=== PATIENT | male | born 1975 | race Caucasian/White ===

== ENCOUNTER 2016-12-22 17:41 | Inpatient (IN) | payer OTHER ==
[~2016-12-22] VITALS: Ht 182.9 cm; Wt 96.2 kg
[2016-12-22 18:24] VITALS: BP 148/91
[2016-12-22 19:23] LABS: EOSINOPHILS % (AUTO) 4.1 % (0.0-3.0); LYMPHOCYTES % (AUTO) 22.5 % (20.0-45.0); MEAN CORPUSCULAR HEMOGLOBIN 31.9 PG (27.0-31.0); MEAN CORPUSCULAR HGB CONC 36.2 G/DL (32.0-36.0); MEAN CORPUSCULAR VOLUME 88 FL (80-99); MEAN PLATELET VOLUME 7.4 FL (6.5-10.1); NEUTROPHILS % (AUTO) 65.5 % (45.0-75.0); PLATELET COUNT 212 K/UL (150-450); RED BLOOD COUNT 4.85 M/UL (4.70-6.10); RED CELL DISTRIBUTION WIDTH 11.2 % (11.6-14.8); WHITE BLOOD COUNT 10.8 K/UL (4.8-10.8)
[2016-12-22 19:36] LABS: ACETAMINOPHEN < 10 ug/mL (10-30); ALANINE AMINOTRANSFERASE 42 U/L (3-41); ALBUMIN/GLOBULIN RATIO 1.7 (1.0-2.7); ALCOHOL < 10 mg/dL; ANION GAP 13 (5-15); ASPARTATE AMINO TRANSFERASE 35 U/L (5-40); CALCIUM 9.4 mg/dL (8.6-10.2); CARBON DIOXIDE 28 mEQ/L (20-30); CHLORIDE 97 mEQ/L (98-107); CREATININE 0.9 mg/dL (0.7-1.2); GLOMERULAR FILTRATION RATE > 60 mL/min (>60); HEMOLYSIS 74; POTASSIUM 3.7 mEQ/L (3.4-4.9); SODIUM 138 mEQ/L (135-145); TOTAL PROTEIN 6.6 g/dL (6.6-8.7); TROPONIN I < 0.30 ng/mL (<=0.30)
[2016-12-22] MEDS ORDERED: ZANTAC150 MG ORAL (19:39)
[2016-12-22] MEDS ORDERED: DEXILANT30 MG ORAL (19:39)
[2016-12-22] MEDS ORDERED: ATORVASTATIN CA20 MG ORAL (19:40)
[2016-12-22] MEDS ORDERED: levETIRAcetam 500 MG in D5W 110 ML IVPB ONE (19:45)
[2016-12-22 19:46] LABS: CKMB 2.4 ng/mL (< 6.7)
[2016-12-22] MEDS ORDERED: levETIRAcetam 500mg vial IV ONE (19:48)
[2016-12-22] MEDS ORDERED: NS 110 ML ONE (19:48)
[2016-12-22] MEDS ORDERED: Morphine Sulfate 2mg/ml Inj IVP PRN (20:15)
[2016-12-22] MEDS ORDERED: LORazepam Inj 2mg/ml 1ml IV PRN (20:15)
[2016-12-22] MEDS ORDERED: Mylanta II UD 30ml ORAL PRN (20:15)
[2016-12-22] MEDS ORDERED: Zolpidem 5mg tab ORAL PRN (20:15)
[2016-12-22] MEDS ORDERED: Miralax 17gm pkt ORAL PRN (20:15)
[2016-12-22] MEDS ORDERED: CLARITIN5 MG ORAL (20:29)
[2016-12-22 20:42] VITALS: BP 138/84
--- NOTE | 2016-12-22 21:13 | Emergency Room Report ---
History of Present Illness General Chief Complaint: Seizure Source: Patient, EMS Present Illness HPI 41-year-old male presents to ED for evaluation. Per EMS patient had a witnessed seizure while at work. 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 She went to check on the patient he was on the floor convulsing. Call 911. After for several seconds then subsided. Upon arrival patient states he feels okay. Does not remember what happened. Denies history of seizures. Denies alcohol or drug use. Patient states approximately one month ago he had an episode where he passed out while in his car which was parked. Patient states he was "out" for approximately 90 minutes. This was unwitnessed. Patient went to see his doctor who did an EKG and said everything was okay. Denies any headache, blurry vision, nausea or vomiting. Denies chest pain or shortness of breath. No other aggravating relieving factors. Denies any other associated symptom Allergies: Coded Allergies: No Known Allergies (Unverified , 12/22/16) Patient History Past Medical History: GERD Past Surgical History: none Pertinent Family History: none Social History: Denies: alcohol use, drug use, smoking Immunizations: UTD Reviewed Nursing Documentation: PMH: Agreed, PSxH: Agreed Nursing Documentation-PMH Past Medical History: No History, Except For Hx Gastrointestinal Problems: Yes - reflux Review of Systems All Other Systems: negative except mentioned in HPI Physical Exam Vital Signs Date Time Temp Pulse Resp B/P Pulse Ox O2 Delivery O2 Flow Rate FiO2 12/22/16 17:37 97.2 86 18 129/87 97 Room Air Sp02 EP Interpretation: reviewed, normal General Appearance: no apparent distress, alert, GCS 15, non-toxic Head: normocephalic, atraumatic Eyes: bilateral eye PERRL, bilateral eye normal inspection ENT: hearing grossly normal, normal pharynx, no angioedema, normal voice Neck: full range of motion, supple/symm/no masses Respiratory: chest non-tender, lungs clear, normal breath sounds, speaking full sentences Cardiovascular #1: regular rate, rhythm, no edema Cardiovascular #2: 2+ carotid (R), 2+ carotid (L), 2+ radial (R), 2+ radial (L) , 2+ dorsalis pedis (R), 2+ dorsalis pedis (L) Gastrointestinal: normal bowel sounds, non tender, soft, non-distended, no guarding, no rebound Rectal: deferred Genitourinary: normal inspection, no CVA tenderness Musculoskeletal: back normal, gait/station normal, normal range of motion, non- tender Neurologic: alert, oriented x3, responsive, 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 denies history of seizures. Differential diagnosis includes- CVA/TIA, brain bleed, arrythmia, dehydration Clinical course Patient placed on stretcher. Initial history and physical I ordered labs, IV fluids, CT brain Labs-electrolytes okay, leukocytosis noted, hemoglobin/hematocrit stable. Utox negative EKG - NSR, no acute changes CXR unremarkable CT Brain shows area of hypodensity in the right temporal region. Differential includes subacute stroke versus mass. Discussed with radiology recommends MRI Given loading dose of Keppra. I discussed findings with patient and family. Recommended admission for further workup Case discussed with Dr. Echeverria and he agreed to accept the patient to his service for further care and support. i. I feel this is a highly complex case requiring extensive working including EKG/Rhythm strip, Xray/CT/US, Blood/urine lab work, repeat exams while in ED, and administration of strong opiates/narcotics for pain control, admission to hospital or close patient follow up. Diagnosis - new onset seizure, abnormal brain CT admitted to telemetry in serious condition Labs Test 12/22/16 18:55 12/22/16 20:00 White Blood Count 10.8 K/UL (4.8-10.8) Red Blood Count 4.85 M/UL (4.70-6.10) Hemoglobin 15.4 G/DL (14.2-18.0) Hematocrit 42.7 % (42.0-52.0) Mean Corpuscular Volume 88 FL (80-99) Mean Corpuscular Hemoglobin 31.9 PG (27.0-31.0) Mean Corpuscular Hemoglobin Concent 36.2 G/DL (32.0-36.0) Red Cell Distribution Width 11.2 % (11.6-14.8) Platelet Count 212 K/UL (150-450) Mean Platelet Volume 7.4 FL (6.5-10.1) Neutrophils (%) (Auto) 65.5 % (45.0-75.0) Lymphocytes (%) (Auto) 22.5 % (20.0-45.0) Monocytes (%) (Auto) 7.0 % (1.0-10.0) Eosinophils (%) (Auto) 4.1 % (0.0-3.0) Basophils (%) (Auto) 1.0 % (0.0-2.0) Sodium Level 138 mEQ/L (135-145) Potassium Level 3.7 mEQ/L (3.4-4.9) Chloride Level 97 mEQ/L (98-107) Carbon Dioxide Level 28 mEQ/L (20-30) Anion Gap 13 (5-15) Blood Urea Nitrogen 12 mg/dL (7-23) Creatinine 0.9 mg/dL (0.7-1.2) Estimat Glomerular Filtration Rate > 60 mL/min (>60) Glucose Level 101 mg/dL (74-106) Calcium Level 9.4 mg/dL (8.6-10.2) Total Bilirubin 0.3 mg/dL (0.0-1.2) Aspartate Amino Transf (AST/SGOT) 35 U/L (5-40) Alanine Aminotransferase (ALT/SGPT) 42 U/L (3-41) Alkaline Phosphatase 53 U/L (40-129) Total Creatine Kinase 156 U/L (38-174) Creatine Kinase MB 2.4 ng/mL (< 6.7) Creatine Kinase MB Relative Index 1.5 Troponin I < 0.30 ng/mL (<=0.30) Total Protein 6.6 g/dL (6.6-8.7) Albumin 4.2 g/dL (3.5-5.2) Globulin 2.4 g/dL Albumin/Globulin Ratio 1.7 (1.0-2.7) Salicylates Level < 1 mg/dL (10-30) Acetaminophen Level < 10 ug/mL (10-30) Serum Alcohol < 10 mg/dL Urine Opiates Screen Negative (NEGATIVE) Urine Barbiturates Screen Negative (NEGATIVE) Phencyclidine (PCP) Screen Negative (NEGATIVE) Urine Amphetamines Screen Negative (NEGATIVE) Urine Benzodiazepines Screen Negative (NEGATIVE) Urine Cocaine Screen Negative (NEGATIVE) Urine Marijuana (THC) Screen Negative (NEGATIVE) EKG Diagnostic Results Rate: normal Rhythm: NSR ST Segments: no acute changes ASA given to the pt in ED: No Rhythm Strip Diag. Results EP Interpretation: yes Rhythm: NSR, no PVC's, no ectopy Chest X-Ray Diagnostic Results EP Interpretation: Yes Findings: no consolidation, no effusion, no pneumothorax, no acute cardiopulmonary disease Number of Views: 1 CT/MRI/US Diagnostic Results CT/MRI/US Diagnostic Results : Imaging Test Ordered: CT Head Impression abnormal 3.5x2.5cm low density focus in R temporal lobe. subacute CVA vs. mass. recommend MRI Last Vital Signs Date Time Temp Pulse Resp B/P Pulse Ox O2 Delivery O2 Flow Rate FiO2 12/22/16 20:42 97.9 72 21 138/84 100 Room Air Status: improved Disposition: ADMITTED INPATIENT Condition: Serious Referrals: NON PHYSICIAN (PCP) DALILA FELIPE M.D. December 22, 2016 21:13
[2016-12-22 21:57] VITALS: BP 124/79
[2016-12-22] MEDS: Heparin 5000 units/ml inj SUBQ SCH (22:07)
[2016-12-23] VITALS: BP 132/90
[2016-12-23 06:37] VITALS: BP 112/73
[2016-12-23 07:36] LABS: BASOPHILS % (AUTO) 0.8 % (0.0-2.0); EOSINOPHILS % (AUTO) 3.9 % (0.0-3.0); LYMPHOCYTES % (AUTO) 28.1 % (20.0-45.0); MEAN CORPUSCULAR HGB CONC 34.2 G/DL (32.0-36.0); MEAN CORPUSCULAR VOLUME 88 FL (80-99); MEAN PLATELET VOLUME 7.3 FL (6.5-10.1); MONOCYTES % (AUTO) 10.3 % (1.0-10.0); PLATELET COUNT 216 K/UL (150-450); RED BLOOD COUNT 4.64 M/UL (4.70-6.10); RED CELL DISTRIBUTION WIDTH 11.6 % (11.6-14.8); WHITE BLOOD COUNT 8.5 K/UL (4.8-10.8)
[2016-12-23 07:48] LABS: ALANINE AMINOTRANSFERASE 37 U/L (3-41); ALBUMIN/GLOBULIN RATIO 1.7 (1.0-2.7); ANION GAP 11 (5-15); ASPARTATE AMINO TRANSFERASE 30 U/L (5-40); CALCIUM 9.1 mg/dL (8.6-10.2); CARBON DIOXIDE 28 mEQ/L (20-30); CHLORIDE 102 mEQ/L (98-107); CREATININE 0.8 mg/dL (0.7-1.2); GLOMERULAR FILTRATION RATE > 60 mL/min (>60); HEMOLYSIS 11; POTASSIUM 3.8 mEQ/L (3.4-4.9); SODIUM 141 mEQ/L (135-145)
[2016-12-23 08:00] VITALS: BP 116/86
[2016-12-23] MEDS: Heparin 5000 units/ml inj SUBQ SCH ×2 (08:10→20:15)
--- NOTE | 2016-12-23 09:11 | Diagnostic Imaging Report ---
Indication: Seizure Technique: Contiguous 5 mm thick transaxial imaging of the head obtained in a Siemens Sensation [address] scanner. Soft tissue and bone windows generated. Total Dose length Product (DLP): [address] Dose Index Volume (CTDIvol): 70.38 mGy Comparison: none Findings: There is a 3-4 cm area of low attenuation within the right temporal lobe mostly within the middle cranial fossa. Nature of the low density is not known but is suspicious for edema, which may be related to recent or subacute infarct, tumor, cerebritis or infection. Further evaluation with gadolinium-enhanced MRI is recommended. There is no acute hemorrhage. There is no mass effect on the temporal horn of the right lateral ventricle. The lateral ventricles appear symmetric. There is no midline shift. Basal cisterns are normal. Osseous structures are unremarkable in appearance. Mastoids are clear bilaterally. Impression: Suspected edema within the right temporal lobe. Considerations are numerous including recent CVA, cerebritis or tumor. Evaluation with gadolinium-enhanced MRI is recommended. Critical value communication. Findings were discussed via telephone with Dr. Escalona at 19:20, 12/22/[address] scanner at [facility] is accredited by the [employer] and the scans are performed using protocols designed to limit radiation exposure to as low as reasonably achievable to attain images of sufficient resolution adequate for diagnostic evaluation.
--- NOTE | 2016-12-23 09:50 | Diagnostic Imaging Report ---
Indication: Chest Pain Comparison: None A single view chest radiograph was obtained. Findings: Cardiomediastinal appearance is within normal limits for age. Pulmonary vascularity is appropriate. The diaphragmatic contour is smooth and costophrenic angles are sharp. No pleural effusions are identified. The bones are unremarkable. Impression: No acute findings
[2016-12-23 12:00] VITALS: BP 119/78
--- NOTE | 2016-12-23 12:38 | History and Physical ---
History of Present Illness General Date patient seen: December 23, 2016 Reason for Hospitalization: Seizure Present Illness HPI 41-year-old male without any significant PMH presents to ED for evaluation of a witnessed seizure while at work. 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 She went to check on the patient he was on the floor convulsing. Call 911. After for several seconds then subsided. Upon arrival patient states he feels okay. Does not remember what happened. He states approximately one month ago he had an episode where he passed out while in his car which was parked. Patient states he was "out" for approximately 90 minutes. He is admitted for further work up. Allergies: Coded Allergies: No Known Allergies (Unverified , 12/22/16) Medication History Scheduled Atorvastatin Calcium* (Atorvastatin Calcium*), Unknown Dose ORAL BEDTIME, ( Reported) Dexlansoprazole (Dexilant), Unknown Dose ORAL DAILY, (Reported) Loratadine (Claritin), 5 MG ORAL NEEDED, (Reported) Ranitidine Hcl* (Zantac*), Unknown Dose ORAL DAILY, (Reported) Patient History Healthcare decision maker pt A&Ox4 Resuscitation status Full Code Advanced Directive on File No Past Medical/Surgical History Past Medical/Surgical History: (1) Hypercholesteremia Review of Systems All Other Systems: negative except mentioned in HPI Physical Exam General Appearance: WD/WN Lines, tubes and drains: peripheral HEENT: normocephalic, atraumatic Neck: non-tender, normal alignment Respiratory/Chest: chest wall non-tender, lungs clear Cardiovascular/Chest: normal peripheral pulses, normal rate Abdomen: normal bowel sounds, non tender Extremities: normal range of motion, non-tender Skin Exam: normal pigmentation 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 normal Last 24 Hour Vital Signs Date Time Temp Pulse Resp B/P Pulse Ox O2 Delivery O2 Flow Rate FiO2 12/23/16 08:00 97.7 67 18 116/86 100 Room Air 12/23/16 08:00 69 12/23/16 06:37 97.5 62 16 112/73 99 12/23/16 04:00 57 12/23/16 00:00 97.8 64 16 132/90 98 Room Air 12/23/16 00:00 64 12/22/16 22:26 97.9 72 16 124/79 99 Room Air 12/22/16 21:57 72 16 124/79 99 Room Air 12/22/16 20:42 97.9 72 21 138/84 100 Room Air 12/22/16 18:24 76 15 148/91 100 Room Air 12/22/16 17:51 86 18 Room Air 12/22/16 17:37 97.2 86 18 129/87 97 Room Air Intake and Output 12/22/16 12/23/16 19:00 07:00 Intake Total 1115 ml Output Total 200 ml Balance 915 ml Intake IV Total 1115 ml Output Urine Total 200 ml # Voids 1 Laboratory Tests Test 12/22/16 18:55 12/22/16 20:00 12/23/16 07:20 White Blood Count 10.8 K/UL (4.8-10.8) 8.5 K/UL (4.8-10.8) Red Blood Count 4.85 M/UL (4.70-6.10) 4.64 M/UL (4.70-6.10) L Hemoglobin 15.4 G/DL (14.2-18.0) 13.9 G/DL (14.2-18.0) L Hematocrit 42.7 % (42.0-52.0) 40.7 % (42.0-52.0) L Mean Corpuscular Volume 88 FL (80-99) 88 FL (80-99) Mean Corpuscular Hemoglobin 31.9 PG (27.0-31.0) H 30.0 PG (27.0-31.0) Mean Corpuscular Hemoglobin Concent 36.2 G/DL (32.0-36.0) H 34.2 G/DL (32.0-36.0) Red Cell Distribution Width 11.2 % (11.6-14.8) L 11.6 % (11.6-14.8) Platelet Count 212 K/UL (150-450) 216 K/UL (150-450) Mean Platelet Volume 7.4 FL (6.5-10.1) 7.3 FL (6.5-10.1) Neutrophils (%) (Auto) 65.5 % (45.0-75.0) 57.0 % (45.0-75.0) Lymphocytes (%) (Auto) 22.5 % (20.0-45.0) 28.1 % (20.0-45.0) Monocytes (%) (Auto) 7.0 % (1.0-10.0) 10.3 % (1.0-10.0) H Eosinophils (%) (Auto) 4.1 % (0.0-3.0) H 3.9 % (0.0-3.0) H Basophils (%) (Auto) 1.0 % (0.0-2.0) 0.8 % (0.0-2.0) Sodium Level 138 mEQ/L (135-145) 141 mEQ/L (135-145) Potassium Level 3.7 mEQ/L (3.4-4.9) 3.8 mEQ/L (3.4-4.9) Chloride Level 97 mEQ/L (98-107) L 102 mEQ/L (98-107) Carbon Dioxide Level 28 mEQ/L (20-30) 28 mEQ/L (20-30) Anion Gap 13 (5-15) 11 (5-15) Blood Urea Nitrogen 12 mg/dL (7-23) 8 mg/dL (7-23) Creatinine 0.9 mg/dL (0.7-1.2) 0.8 mg/dL (0.7-1.2) Estimat Glomerular Filtration Rate > 60 mL/min (>60) > 60 mL/min (>60) Glucose Level 101 mg/dL (74-106) 97 mg/dL (74-106) Calcium Level 9.4 mg/dL (8.6-10.2) 9.1 mg/dL (8.6-10.2) Total Bilirubin 0.3 mg/dL (0.0-1.2) 0.7 mg/dL (0.0-1.2) Aspartate Amino Transf (AST/SGOT) 35 U/L (5-40) 30 U/L (5-40) Alanine Aminotransferase (ALT/SGPT) 42 U/L (3-41) H 37 U/L (3-41) Alkaline Phosphatase 53 U/L (40-129) 45 U/L (40-129) Total Creatine Kinase 156 U/L (38-174) Creatine Kinase MB 2.4 ng/mL (< 6.7) Creatine Kinase MB Relative Index 1.5 Troponin I < 0.30 ng/mL (<=0.30) Total Protein 6.6 g/dL (6.6-8.7) 6.0 g/dL (6.6-8.7) L Albumin 4.2 g/dL (3.5-5.2) 3.8 g/dL (3.5-5.2) Globulin 2.4 g/dL 2.2 g/dL Albumin/Globulin Ratio 1.7 (1.0-2.7) 1.7 (1.0-2.7) Salicylates Level < 1 mg/dL (10-30) L Acetaminophen Level < 10 ug/mL (10-30) L Serum Alcohol < 10 mg/dL Urine Opiates Screen Negative (NEGATIVE) Urine Barbiturates Screen Negative (NEGATIVE) Phencyclidine (PCP) Screen Negative (NEGATIVE) Urine Amphetamines Screen Negative (NEGATIVE) Urine Benzodiazepines Screen Negative (NEGATIVE) Urine Cocaine Screen Negative (NEGATIVE) Urine Marijuana (THC) Screen Negative (NEGATIVE) Height (Feet): 6 Height (Inches): 0.00 Weight (Pounds): 212 Medications Current Medications Medications (Trade) Dose Ordered Sig/Sisi Route PRN Reason Start Time Stop Time Status Last Admin Dose Admin Acetaminophen (Tylenol) 650 mg Q4H PRN ORAL fever 12/22/16 20:15 01/21/17 20:14 Al Hydroxide/Mg Hydroxide (Mylanta II) 30 ml Q6H PRN ORAL dyspepsia 12/22/16 20:15 01/21/17 20:14 Dextrose (Dextrose 50%) STAT PRN IV Hypoglycemia 12/22/16 20:15 01/21/17 20:14 Heparin Sodium (Porcine) (Heparin 5000 units/ml) 5,000 units EVERY 12 HOURS SUBQ 12/22/16 21:00 01/21/17 20:59 12/23/16 08:10 Lorazepam (Ativan 2mg/ml 1ml) 2 mg Q1H PRN IV seizures 12/22/16 20:15 12/29/16 20:14 Morphine Sulfate (Morphine Sulfate) 1 mg Q4H PRN IVP For Pain 12/22/16 20:15 12/29/16 20:14 Ondansetron HCl (Zofran) 4 mg Q6H PRN IVP Nausea & Vomiting 12/22/16 20:15 01/21/17 20:14 Polyethylene Glycol (Miralax) 17 gm HSPRN PRN ORAL Constipation 12/22/16 20:15 01/21/17 20:14 Zolpidem Tartrate (Ambien) 5 mg HSPRN PRN ORAL Insomnia 12/22/16 20:15 01/21/17 20:14 Assessment/Plan Problem List: (1) New onset seizure ICD Codes: R56.9 - Unspecified convulsions SNOMED: 15644249 (2) Brain mass ICD Codes: G93.9 - Disorder of brain, unspecified SNOMED: 833181480 (3) Hypercholesteremia ICD Codes: E78.00 - Pure hypercholesterolemia, unspecified SNOMED: 13408807 Assessment/Plan Neuro evaluation anti seizures prn dvt prophylaxis. JALIL LUTHER December 23, 2016 12:38
--- NOTE | 2016-12-23 13:24 | Neurology Progress Note ---
Objective Physical Exam Last Vital Signs Date Time Temp Pulse Resp B/P Pulse Ox O2 Delivery O2 Flow Rate FiO2 12/23/16 12:00 96.8 59 18 119/78 98 Room Air Laboratory Tests Test 12/22/16 18:55 12/22/16 20:00 12/23/16 07:20 White Blood Count 10.8 K/UL (4.8-10.8) 8.5 K/UL (4.8-10.8) Red Blood Count 4.85 M/UL (4.70-6.10) 4.64 M/UL (4.70-6.10) L Hemoglobin 15.4 G/DL (14.2-18.0) 13.9 G/DL (14.2-18.0) L Hematocrit 42.7 % (42.0-52.0) 40.7 % (42.0-52.0) L Mean Corpuscular Volume 88 FL (80-99) 88 FL (80-99) Mean Corpuscular Hemoglobin 31.9 PG (27.0-31.0) H 30.0 PG (27.0-31.0) Mean Corpuscular Hemoglobin Concent 36.2 G/DL (32.0-36.0) H 34.2 G/DL (32.0-36.0) Red Cell Distribution Width 11.2 % (11.6-14.8) L 11.6 % (11.6-14.8) Platelet Count 212 K/UL (150-450) 216 K/UL (150-450) Mean Platelet Volume 7.4 FL (6.5-10.1) 7.3 FL (6.5-10.1) Neutrophils (%) (Auto) 65.5 % (45.0-75.0) 57.0 % (45.0-75.0) Lymphocytes (%) (Auto) 22.5 % (20.0-45.0) 28.1 % (20.0-45.0) Monocytes (%) (Auto) 7.0 % (1.0-10.0) 10.3 % (1.0-10.0) H Eosinophils (%) (Auto) 4.1 % (0.0-3.0) H 3.9 % (0.0-3.0) H Basophils (%) (Auto) 1.0 % (0.0-2.0) 0.8 % (0.0-2.0) Sodium Level 138 mEQ/L (135-145) 141 mEQ/L (135-145) Potassium Level 3.7 mEQ/L (3.4-4.9) 3.8 mEQ/L (3.4-4.9) Chloride Level 97 mEQ/L (98-107) L 102 mEQ/L (98-107) Carbon Dioxide Level 28 mEQ/L (20-30) 28 mEQ/L (20-30) Anion Gap 13 (5-15) 11 (5-15) Blood Urea Nitrogen 12 mg/dL (7-23) 8 mg/dL (7-23) Creatinine 0.9 mg/dL (0.7-1.2) 0.8 mg/dL (0.7-1.2) Estimat Glomerular Filtration Rate > 60 mL/min (>60) > 60 mL/min (>60) Glucose Level 101 mg/dL (74-106) 97 mg/dL (74-106) Calcium Level 9.4 mg/dL (8.6-10.2) 9.1 mg/dL (8.6-10.2) Total Bilirubin 0.3 mg/dL (0.0-1.2) 0.7 mg/dL (0.0-1.2) Aspartate Amino Transf (AST/SGOT) 35 U/L (5-40) 30 U/L (5-40) Alanine Aminotransferase (ALT/SGPT) 42 U/L (3-41) H 37 U/L (3-41) Alkaline Phosphatase 53 U/L (40-129) 45 U/L (40-129) Total Creatine Kinase 156 U/L (38-174) Creatine Kinase MB 2.4 ng/mL (< 6.7) Creatine Kinase MB Relative Index 1.5 Troponin I < 0.30 ng/mL (<=0.30) Total Protein 6.6 g/dL (6.6-8.7) 6.0 g/dL (6.6-8.7) L Albumin 4.2 g/dL (3.5-5.2) 3.8 g/dL (3.5-5.2) Globulin 2.4 g/dL 2.2 g/dL Albumin/Globulin Ratio 1.7 (1.0-2.7) 1.7 (1.0-2.7) Salicylates Level < 1 mg/dL (10-30) L Acetaminophen Level < 10 ug/mL (10-30) L Serum Alcohol < 10 mg/dL Urine Opiates Screen Negative (NEGATIVE) Urine Barbiturates Screen Negative (NEGATIVE) Phencyclidine (PCP) Screen Negative (NEGATIVE) Urine Amphetamines Screen Negative (NEGATIVE) Urine Benzodiazepines Screen Negative (NEGATIVE) Urine Cocaine Screen Negative (NEGATIVE) Urine Marijuana (THC) Screen Negative (NEGATIVE) Carcinoembryonic Antigen 0.6 ng/mL Impression/Recommendations Problems: (1) R temporal mass lesion ,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
--- NOTE | 2016-12-23 14:03 | Diagnostic Imaging Report ---
Indication: Seizure Technique: The head was imaged in a 1.5 Mimi magnet. Sequences obtained include sagittal and axial T1 FLAIR, axial T2 fast spin echo with fat saturation, axial T2 FLAIR, diffusion and ADC map. Gadolinium-enhanced axial and coronal T1 FLAIR obtained also. Comparison: None There is an abnormal area of low T1/high T2 signal at the periphery of the right temporal lobe just posterior to the insula measuring 3 x 4.5 x 4.5 cm in transverse, AP, craniocaudal dimensions respectively. The lesion is associated with sulcal effacement due to gyral enlargement and edema. The lesion is hypovascular with faint diffusion restriction. Diffusion signal is mostly T2 shine through. There is slight mass effect on the right sylvian fissure. Although within the temporal lobe, this does not involve the limbic system per se. Differential diagnosis for this includes low-grade RODEO RIDER neoplasm such as glioma, viral encephalitis, especially herpes encephalitis, subacute CVA. Suggest further evaluation with FDG PET/CT area MR spectroscopy may be helpful. Please correlate clinically. The remainder the exam is normal. The ventricles and basal cisterns are normal. There is no midline shift. There is no evidence of hemorrhage or magnetic susceptibility within the brain. Corpus callosum, sella, osseous bone marrow signal appear unremarkable. Minimal mucosal thickening within paranasal sinuses and small fluid retention cysts are noted bilaterally within the maxillary sinuses. Impression: 3 x 4.5 x 4.5 cm focus of gyral edema in the peripheral right temporal lobe. 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 Differential considerations include a late subacute CVA and focal cerebritis especially herpes encephalitis. Further clinical evaluation and FDG PET CT is recommended. The findings were discussed with Dr. Eddy via telephone.
--- NOTE | 2016-12-23 15:48 | Cardiology Report ---
APPROVED REPORT EKG Measurement Heart [id number] Normal sinus rhythm Normal ECG
[2016-12-23 16:00] VITALS: BP 135/77
[2016-12-23 20:00] VITALS: BP 119/74
--- NOTE | 2016-12-23 22:09 | Consultation ---
DATE OF CONSULTATION: 12/23/2016 NEUROLOGICAL CONSULTATION CONSULTING PHYSICIAN: Otf Lantigua M.D. REQUESTING PHYSICIAN: Huyen Echeverria M.D. HISTORY OF PRESENT ILLNESS: The patient is a 41-year-old male, seen in neurological consultation to evaluate new onset of seizure disorder. According to the patient as well as from his , who was present during the examination known that yesterday, he was doing fairly well and was asymptomatic. He was at work at desk and talking on the phone when suddenly he felt slight dizziness and lost consciousness. 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 Paramedics were called to the scene. At that point, the patient started to wake up. He had no recollection of the event. With this, he was brought to emergency room. His vital signs on admission were stable. He was afebrile. His examination was normal. His laboratory work included a CBC study with elevated MCH. His chemistry panel was normal including normal CPK and CEA. Toxicology panel negative. Imaging studies, chest x-ray, no acute findings. A CT scan of the brain revealed suspected edema in the right temporal lobe. This is followed by MRI of the brain with and without contrast revealing slightly enhancing right temporal lobe mass lesion with a surrounding edema, but no midline shift. No other abnormalities noted. Findings resembles a glioma. Since admission till present, there were no further paroxysmal events. The patient meanwhile was placed on Keppra. We will continue with 500 mg b.i.d. According to the patient, two months ago after having some coughing spells and taking NyQuil at nighttime with one glass of wine, he was feeling fairly well and was in his car sitting, in a parking when he had an episode loss of consciousness. This was not witnessed. He is not sure if he had any convulsions, but there was no tongue biting. No urine or bowel incontinence. He was seen by his family physician, checked up EKG and blood tests, all of this was negative. The patient also informed that one week ago, he had an episode of vomiting and diarrhea, went to emergency room, started on Cipro, and symptoms gradually resolved. PAST MEDICAL HISTORY: The patient has no major medical problems. He has history of GERD. No history of seizure activities or loss of consciousness. ALLERGIES: None reported. FAMILY HISTORY: Noncontributory. No family members with seizure activity. SOCIAL HISTORY: . 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 No alcohol, no drug abuse, and nonsmoker. REVIEW OF SYMPTOMS: He has slight tenderness on palpation in the left temporal region due to trauma. He has a bitten tongue. PHYSICAL EXAMINATION: MUSCULOSKELETAL EXAMINATION: Unremarkable with no deformities. Peripheral pulses 1+ symmetric. MENTAL STATUS: Alert and oriented x3. Speech is fluent. Language intact. No aphasia. No apraxia. Cognitive function normal. CRANIAL NERVE II: Pupils both responding to light and accommodation. Extraocular movement intact. No nystagmus. CRANIAL NERVE V: Normal corneal responses. CRANIAL NERVE VII: No facial asymmetry. CRANIAL NERVE VIII: Normal hearing. CRANIAL NERVES IX THROUGH XII: Within normal limits. MOTOR EXAMINATION: Normal muscle tone. Strength 5/5 in all extremities. No involuntary movement. Deep tendon reflexes 1+ symmetric with downgoing toes on both sides. SENSORY EXAMINATION: Normal to pinprick and light touch. GAIT: Stable including tandem gait. IMPRESSION: 1. New onset of seizure disorder. 2. Right temporal lobe mass lesion, rule out glioma. RECOMMENDATIONS: 1. CT chest, abdomen, and pelvis to rule out malignancies. 2. Lab work to include serum protein electrophoresis, KARL, sedimentation rate, and HIV. 3. The patient will continue with Keppra 500 mg b.i.d. 4. The patient will see Neurosurgery for a possible brain biopsy/tumor resection. Thank you for allowing me to see this interesting patient in neurological consultation. Otf Lantigua M.D. DR: JENN JOB#: [id number] CC:
[2016-12-24] VITALS: BP 112/75
[2016-12-24 04:00] VITALS: BP 101/66
[2016-12-24 08:03] VITALS: BP 107/64
[2016-12-24] MEDS: Heparin 5000 units/ml inj SUBQ SCH (08:27)
--- NOTE | 2016-12-24 11:10 | Neurology Progress Note ---
Interim History Interim History ROS Limited/Unobtainable: No Complaints: ok Events: no sz Objective Physical Exam Last Vital Signs Date Time Temp Pulse Resp B/P Pulse Ox O2 Delivery O2 Flow Rate FiO2 12/24/16 08:03 97.0 55 18 107/64 99 Room Air General: well developed, well nourished, no acute distress Head: normocophalic Neck: no rigidity EENT: other - bitten tongue Neurologic Exam Mental Status: awake, alert, oriented x4, normal cognition, good mathematical skills, normal recent memory, normal remote memory, preserved visuospatial function Speech: normal speech, no dysarthia Language: normal language, no aphasia Cranial Nerve II: fundus normal, visual medina, no papilledema Cranial Nerves III, IV, : PERRLA, EOMI, pupils Cranial Nerve V: normal facial sensations, temporales function normal, masseters function normal, pterygoids function normal Cranial Nerve VII: no facial asymmetry, normal facial expressions Cranial Nerve VIII: normal hearing, no nystagmus Cranial Nerve IX: normal palate elevation, gag response Cranial Nerve X: no voice hoarseness Cranial Nerve XI: SCM symmetric, trapezii function normal Cranial Nerve XII: tongue midline, no tongue atrophy/fasciculations Motor System: normal muscle tone, strength 5/5, no involuntary movement, no muscle wasting Sensory: normal pinprick, normal light touch, normal position sense, normal graphesthesia Coordination: normal finger to nose bilaterally, normal heel to guillen bilaterally, negative Romberg test Deep Tendon Reflexes: 2+ ankle (L), 2+ ankle (R), 2+ bicep (L), 2+ bicep (R), 2 + brachioradialis (L), 2+ brachioradialis (R), 2+ knee (L), 2+ knee (R), 2+ tricep (L), 2+ tricep (R) Stance: normal Gait: stable, normal regular, heel + toe gait Impression/Recommendations Problems: (1) R temporal mass lesion ,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
[2016-12-24 11:40] VITALS: BP 118/76
[2016-12-24] MEDS ORDERED: KEPPRA500 M4 ORAL (11:58)
--- NOTE | 2016-12-24 13:31 | Pulmonology Progress Note ---
Assessment/Plan Problems: (1) New onset seizure (2) Brain mass (3) Hypercholesteremia Assessment/Plan ct chest, abdmen done pt was given keppra prescription by dr Lantigua pt scheduled to see a neuro surgeon at [facility]. Subjective ROS Limited/Unobtainable: No Interval Events: no new complains Allergies: Coded Allergies: No Known Allergies (Unverified , 12/22/16) Objective Last 24 Hour Vital Signs Date Time Temp Pulse Resp B/P Pulse Ox O2 Delivery O2 Flow Rate FiO2 12/24/16 12:00 73 12/24/16 11:40 97.7 57 18 118/76 99 Room Air 12/24/16 08:03 97.0 55 18 107/64 99 Room Air 12/24/16 08:00 53 12/24/16 04:00 97.0 56 18 101/66 97 Room Air 12/24/16 04:00 53 12/24/16 00:00 98.1 73 18 112/75 98 Room Air 12/24/16 00:00 55 12/23/16 20:00 66 12/23/16 20:00 97.7 63 18 119/74 98 Room Air 12/23/16 16:00 97.0 68 18 135/77 98 Room Air 12/23/16 16:00 68 Intake and Output 12/23/16 12/24/16 19:00 07:00 Output Total 300 ml Balance -300 ml Output Urine Total 300 ml # Voids 1 General Appearance: WD/WN HEENT: normocephalic, anicteric Respiratory/Chest: chest wall non-tender, lungs clear Cardiovascular: normal peripheral pulses, normal rate Abdomen: normal bowel sounds, soft, non tender JALIL LUTHER December 24, 2016 13:31
--- NOTE | 2016-12-24 14:34 | Diagnostic Imaging Report ---
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 Multiple phases of enhancement obtained. Coronal 2-D reformats were also obtained. Study obtained in a Siemens sensation [address] Total Dose length Product (DLP): [address] Dose Index Volume (CTDIvol): 8.1, 105.5, 15.6, 13.9 mGy Comparison: None Findings: CT chest: The lungs are clear. No adenopathy is appreciated within the chest. Aorta, heart and colon are unremarkable. No pleural effusion identified. Axilla. Clear. CT abdomen pelvis: Liver attenuation is normal. Spleen and other solid organs including the pancreas, adrenal glands and kidneys appear unremarkable. There is no free fluid, free air or lymphadenopathy identified. The urinary bladder is unremarkable in appearance. Pelvic sidewall is clear. Inguinal regions are clear. Impression: No evidence of malignancy in the basis of this examination. No lymphadenopathy identified. The CT scanner at [facility] is accredited by the [employer] and the scans are performed using protocols designed to limit radiation exposure to as low as reasonably achievable to attain images of sufficient resolution adequate for diagnostic evaluation.
--- NOTE | 2016-12-25 15:11 | Discharge Summary ---
Discharge Summary Hospital Course Date of Admission December 22, 2016 at 19:20 Date of Discharge December 24, 2016 at 13:09 Admitting Diagnosis new onset seizure HPI Georgi Oliva is a 41 year old male who was admitted on December 22, 2016 at 19:20 for [facility] Hospital Course [id number] Discharge Discharge Disposition Patient was discharged to Home (01) Discharge Diagnoses: Ivana Tellez NP December 25, 2016 15:11
--- NOTE | 2016-12-26 08:29 | Discharge Summary 2 SIG ---
DATE OF ADMISSION: 12/22/2016 DATE OF DISCHARGE: 12/24/2016 QA SOFTWARE TEST ENGINEER: Kris Lantigua M.D. BRIEF HOSPITAL COURSE: The patient is a 41-year-old male, without any significant past medical history, presented to ED for evaluation of a witnessed seizure while at work. The patient was at his desk and was talking on the phone and suddenly was found convulsing. 911 was called and he was taken to ED. On evaluation, toxicology was negative. CT scan of the brain showed area of hypodensity in the right temporal region. He was given loading dose of Keppra. Chest x-ray was unremarkable. EKG showed normal sinus rhythm with no acute changes. He was admitted for further workup and was seen by Dr. Lantigua. He was placed on seizure precautions. MRI of the brain with and without contrast revealed a slightly enhancing right temporal lobe mass lesion with a surrounding edema, but no midline shift. He had an episode of loss of consciousness about 2 months ago, which was not witnessed, unsure if there were any convulsions however denies any tongue biting, or urine or bladder incontinence. CT of the chest, abdomen and pelvis showed no evidence of malignancy, no lymphadenopathy. He was continued on Keppra 500 mg b.i.d. and had arranged appointment with Dr. Thomson Neurosurgery at [facility]. The patient was discharged home to follow up with Neurosurgery. FINAL DIAGNOSES: 1. Acute new onset seizure. 2. Brain mass. 3. Hypercholesterolemia. Huyen Echeverria M.D. I have been assigned to dictate discharge summary on this account and I was not involved in the patient's management. Ivana Tellez N.P. DR: Florence JOB#: [id number] CC:
== END 2016-12-24 13:09 | disposition home or self-care (01) | DRG 101 ==
LOC: EDBD 17:41 → EMR 18:35 → 2W 19:20 → EDBEDREQ 20:43 → 2W 22:24 → 2E 12-23 06:38
DX: R56.9 Unspecified convulsions (principal); E78.00 Pure hypercholesterolemia, unspecified; G93.9 Disorder of brain, unspecified
CPT/HCPCS: 36415; 70450; 70553; 71010; 71260; 74177; 80053; 80299; 80300; 80329; 82378; 82550; 82553; 82962; 84484; 85025; 93005; A9585